=== PATIENT | female | born 1990 | race Caucasian/White ===

== ENCOUNTER 2019-08-14 23:51 | Emergency (ER) | payer OTHER ==
[~2019-08-14] VITALS: Ht 167.6 cm; Wt 86.4 kg
[~2019-08-14 23:51] MED LIST: ALLEGRA180 MG PO; BENTYL10 MG PO; JUNEL 1.5/30 301 TAB PO; KETOROLAC10 MG PO; MOTRIN 800800 MG/TAB PO; PEPCID 20MG TAB20 MG PO; RITALIN LA10 MG PO; SINGULAIR10 MG PO; ZOFRAN ODT4 MG PO
[2019-08-14 23:56] VITALS: TEMP 98
[2019-08-15] MEDS ORDERED: SINGULAIR 110 MG/TAB PO (00:09)
[2019-08-15] MEDS ORDERED: ALLEGRA 180MG180 MG PO (00:09)
[2019-08-15] MEDS ORDERED: ASPIRIN 32325 MG/TAB PO (00:09)
[2019-08-15 01:13] LABS: BASO # 0.1 (0.0-0.2); BASO % 0.9 % (0.0-2.0); EOS # 0.3 (0.0-0.7); EOS % 2.9 % (0-4.0); GRAN # 4.9 (1.4-6.5); GRAN % 55.9 % (42.2-75.2); HEMATOCRIT 38.5 % (37.0-47.0); HEMOGLOBIN 12.6 g/dl (12.5-16.0); LYMPH # 2.9 (1.2-3.4); LYMPH % 33.1 % (20.0-51.0); MEAN CELL VOLUME 89 fl (80.0-100.0); MEAN CORPUSCULAR HEMOGLOBIN 29 pg (27.0-31.0); MEAN CORPUSCULAR HGB CONC 33 g/dl (33.0-37.0); MEAN PLATELET VOLUME 8.2 fl (7.4-10.4); MONO # 0.6 (0.1-0.6); MONO % 6.7 % (1.7-9.3); PLATELET COUNT 413 K/mm3 (130-400); RED BLOOD COUNT 4.34 M/mm3 (4.10-5.30); REDCELL DISTRIBUTION WIDTH-CV 12.3 % (11.5-14.5)
[2019-08-15 01:30] LABS: ALBUMIN 4.4 gm/dL (3.5-5.0); BILIRUBIN,TOTAL 0.4 mg/dL (0.0-1.0); C-REACTIVE PROTEIN 0.7 mg/dL (0.0-0.9); CALCIUM 9.9 mg/dL (8.4-10.2); CREATININE, serum 0.66 (0.52-1.25); TOTAL PROTEIN 7.6 gm/dL (6.4-8.2)
[2019-08-15 01:36] LABS: ERYTHROCYTE SEDIMENTATION RATE 14 mm/hr (0-20)
[2019-08-15] MEDS ORDERED: CRUTCHES MC (02:18)
[2019-08-15 03:48] VITALS: BP 118/70; PULSE 62
== END 2019-08-15 03:48 | disposition home or self-care (01) ==
LOC: COL.ER 23:51
PROVIDERS: Emergency Medicine
DX: G89.18 Other acute postprocedural pain (principal); M25.461 Effusion, right knee; J45.909 Unspecified asthma, uncomplicated; J30.2 Other seasonal allergic rhinitis; Z79.82 Long term (current) use of aspirin; Z82.49 Family history of ischemic heart disease and other diseases of the circulatory system; Z88.2 Allergy status to sulfonamides; Z88.1 Allergy status to other antibiotic agents